=== PATIENT | female | born 1960 | race African-American/Black ===

== ENCOUNTER 2017-02-14 21:40 | Emergency (ER) | payer MEDICARE, MEDICAID ==
[~2017-02-14] VITALS: Ht 162.6 cm; Wt 98.0 kg
[~2017-02-14 21:40] MED LIST: AMOXICILLIN500 M2 PO; AMOXICILLIN500 MG PO; AUGMENTIN875TAB PO; BACTRIM DS1 TAB PO; BENADRYL25 MG OR; CELEBREX100 MG OR; CEPHALEXIN500 MG PO; CHILD ASA LS81 MG PO; CLARITIN10 M1 PO; FLEXERIL OR; FLEXERIL PO; FLEXERIL5 MG PO; FLONASE NASAL50 MCG; GLIPIZIDE10 MG PO; HYDROCHLOROT25 MG; HYDROCO/APAP1 TA2 OR; IBUPROFEN600 MG PO; JANUVIA50 MG PO; LEVEMIR FL100 UNIT/M SC; LISINOP/HCTZ1 TA1 PO; LOPRESSOR12.5 MG PO; LORTAB 10-325 M1 TAB PO; LORTAB 7.5 OR; METFORMIN500 MG PO; NAPROSYN500 MG PO; PEPCID20 MG OR; PERCOCET 5/325M1 TAB PO; PREDNISONE20 MG OR; ROBITUSSIN200 MG/10 PO; SIMVASTATIN20 MG PO; TRICOR145 MG PO; TRICOR48 MG PO; TYLENOL # 31 TAB OR; ULTRAM50 M1 PO; ZITHROMAX250 MG PO; ZOFRAN4 MG/TAB PO
[2017-02-14] MEDS ORDERED: SEROQUEL400 M1 PO (23:37)
[2017-02-14] MEDS ORDERED: FLEXERIL PO (23:49)
[2017-02-14] MEDS ORDERED: ULTRAM50 M1 PO (23:49)
[2017-02-14] MEDS ORDERED: CEPHALEXIN500 MG PO (23:49)
[2017-02-14] MEDS ORDERED: ROBITUSSIN AC10 ML PO (23:49)
[2017-02-14] MEDS ORDERED: METFORMIN500 MG PO (23:54)
[2017-02-14] MEDS ORDERED: TRICOR145 MG PO (23:54)
[2017-02-15 00:11] VITALS: BP 140/70
[2017-02-15] MEDS ORDERED: AMOXICILLIN500 MG PO (00:17)
== END 2017-02-15 | disposition home or self-care (01) ==
LOC: ED 21:40
DX: J02.0 Streptococcal pharyngitis (principal); M54.5 Low back pain; R05 Cough; R50.9 Fever, unspecified

== ENCOUNTER 2017-08-29 21:40 | Emergency (ER) | payer OTHER, MEDICARE, MEDICAID ==
[~2017-08-29] VITALS: Ht 162.6 cm; Wt 93.2 kg
[~2017-08-29 21:40] MED LIST changes: +ROBITUSSIN AC10 ML PO; +SEROQUEL400 M1 PO
[2017-08-30] MEDS ORDERED: MELOXICAM7.5 MG PO (00:43)
[2017-08-30 01:11] VITALS: BP 141/79
== END 2017-08-30 01:11 | disposition home or self-care (01) | DRG 554 ==
LOC: ED 21:40
DX: M17.12 Unilateral primary osteoarthritis, left knee (principal); M25.562 Pain in left knee

== ENCOUNTER 2017-12-14 23:33 | Emergency (ER) | payer OTHER, MEDICARE, MEDICAID ==
[~2017-12-14] VITALS: Ht 162.6 cm; Wt 95.8 kg
[~2017-12-14 23:33] MED LIST changes: +MELOXICAM7.5 MG PO
[2017-12-15] MEDS ORDERED: ULTRAM50 M1 PO (00:16)
[2017-12-15] MEDS ORDERED: FLEXERIL PO (00:16)
[2017-12-15 00:44] VITALS: BP 167/94
== END 2017-12-15 00:44 | disposition home or self-care (01) | DRG 552 ==
LOC: ED 23:33
DX: M54.32 Sciatica, left side (principal); E11.9 Type 2 diabetes mellitus without complications; E78.00 Pure hypercholesterolemia, unspecified

== ENCOUNTER 2019-09-17 11:05 | Emergency (ER) | payer MEDICARE, MEDICAID ==
[2019-09-17] MEDS ORDERED: LYRICA300 MG PO (11:57)
[2019-09-17] MEDS ORDERED: VISTARIL 50MG C50 M1 PO (12:25)
[2019-09-17 12:32] VITALS: BP 169/78
== END 2019-09-17 12:31 | disposition home or self-care (01) ==
LOC: ED 11:05
DX: E11.42 Type 2 diabetes mellitus with diabetic polyneuropathy (principal); Z79.84 Long term (current) use of oral hypoglycemic drugs